=== PATIENT | female | born 1940 | race Caucasian/White ===

== ENCOUNTER → 2018-03-18 15:49 | Outpatient (REF) | payer OTHER, SELFPAY ==
[2018-03-18 20:32] LABS: Anion Gap 9.2 mmol/L (3-11); BUN 19 mg/dL (7-18); CO2 27.8 mmol/L (21.0-32.0); CREATININE 1.16 mg/dL (0.55-1.02); Calcium 8.6 mg/dL (8.5-10.1); Chloride 104 mmol/L (98-107); Estimated GFR 45.07 (mL/min/1.73m2); Glucose 89 mg/dL (70-100); Potassium 4.9 mmol/L (3.5-5.1); Sodium 141 mmol/L (136-145); TSH 0.28 uIU/mL (0.358-3.74)
[2018-03-19 15:18] LABS: FREE T4 1.12 ng/dL (0.76-1.46)
== END ==
LOC: NCHCN 15:49
PROVIDERS: PCP Nurse Practitioner Family; Visit Provider Physician Assistant Medical
DX: I10 Essential (primary) hypertension (principal); E03.9 Hypothyroidism, unspecified
CPT/HCPCS: 80048; 84439; 84443

== ENCOUNTER 2018-08-04 16:21 | Outpatient (REF) | payer OTHER, SELFPAY | END 2018-08-04 16:41 | LOC: LBN 16:21 | PROVIDERS: PCP Nurse Practitioner Family; Visit Provider Nurse Practitioner Family | DX: R35.0 Frequency of micturition (principal) | CPT/HCPCS: 87077; 87086; 87186 ==

== ENCOUNTER 2018-08-10 16:52 | Outpatient (REF) | payer OTHER, SELFPAY ==
[2018-08-10 21:58] LABS: Abs Immature Grans 0.02 k/cumm (0.0-0.09); Absolute Basophil Count 0.04 k/cumm (0.0-0.2); Absolute Eosinophil Count 0.33 k/cumm (0.0-0.7); Absolute Lymphocyte Count 1.28 k/cumm (1.2-3.4); Absolute Neutrophil Count 4.76 k/cumm (1.2-6.7); Basophils % 0.6; Eosinophils % 4.6; HCT 41.3 % (36.0-46.0); HGB 13.6 g/dL (12.0-15.5); Immature Grans % 0.3; Mean Corp. HGB Concentration 32.9 g/dL (32.0-36.0); Mean Corpuscular Hemoglobin 31.8 pg (27.0-33.0); Mean Corpuscular Volume 96.5 fL (80-95); Mean Platelet Volume 10.7 fL (8.0-11.0); Monocytes % 9.8; Neutrophils % 66.7; Platelet Count 236 x1000/uL (130-400); RBC 4.28 m/cumm (4.00-5.20); RBC Distribution Width 14.4 % (11.7-14.6); White Blood Cell Count 7.13 k/cumm (4.4-10.8)
[2018-08-10 22:24] LABS: ALT 15 U/L (12-78); AST 16 U/L (15-37); Albumin 3.9 g/dL (3.4-5.0); Alkaline Phosphatase 67 U/L (46-116); BUN 22 mg/dL (7-18); Bilirubin, Total 0.2 mg/dL (0.2-1.0); Chloride 103 mmol/L (98-107); Creatine Kinase 57 U/L (26-192); Estimated GFR 43.34 (mL/min/1.73m2); Glucose 82 mg/dL (70-100); Potassium 4.7 mmol/L (3.5-5.1); Sodium 140 mmol/L (136-145); TSH 1.43 uIU/mL (0.358-3.74); Total Protein 7.1 g/dL (6.4-8.2)
== END 2018-08-10 17:12 ==
LOC: NCHCN 16:52
PROVIDERS: PCP Nurse Practitioner Family; Visit Provider Nurse Practitioner Family
DX: E03.9 Hypothyroidism, unspecified (principal); I10 Essential (primary) hypertension; R31.9 Hematuria, unspecified; R53.83 Other fatigue
CPT/HCPCS: 80053; 82550; 84443; 85025

== ENCOUNTER 2018-09-18 12:12 | Outpatient (REF) | payer OTHER, SELFPAY ==
[2018-09-18 19:20] LABS: Cholesterol 181 mg/dL (50-200); HDL Cholesterol 65 mg/dL (40-60); LDL CHOLESTEROL 91 mg/dL (<100); Triglyceride 151 mg/dL (30-150)
== END 2018-09-18 12:32 ==
LOC: NCHCN 12:12
PROVIDERS: PCP Nurse Practitioner Family; Visit Provider Nurse Practitioner Family
DX: E78.5 Hyperlipidemia, unspecified (principal)
CPT/HCPCS: 80061; 83721

== ENCOUNTER 2018-12-24 12:53 | Outpatient (REF) | payer OTHER, SELFPAY | END 2018-12-24 13:13 | LOC: NCHCN 12:53 | PROVIDERS: PCP Family Medicine; Visit Provider Nurse Practitioner Family | DX: R30.0 Dysuria (principal) | CPT/HCPCS: 87077; 87086; 87186 ==

== ENCOUNTER 2019-03-29 15:11 | Outpatient (REF) | payer OTHER, SELFPAY ==
[2019-03-29 21:23] LABS: ALT 18 U/L (14-59); AST 14 U/L (15-37); Anion Gap 8.4 mmol/L (3-11); BUN 18 mg/dL (7-18); CO2 27.6 mmol/L (21.0-32.0); CREATININE 0.87 mg/dL (0.55-1.02); Calcium 8.4 mg/dL (8.5-10.1); Chloride 105 mmol/L (98-107); Glucose 90 mg/dL (70-100); Potassium 4.4 mmol/L (3.5-5.1); Sodium 141 mmol/L (136-145)
[2019-03-29 22:01] LABS: ESR 19 mm/hr (0-30)
[2019-03-29 22:13] LABS: Creatine Kinase 87 U/L (26-192)
== END 2019-03-29 15:31 ==
LOC: NCHCN 15:11
PROVIDERS: PCP Family Medicine; Visit Provider Nurse Practitioner Family
DX: M62.81 Muscle weakness (generalized) (principal); R27.9 Unspecified lack of coordination
CPT/HCPCS: 80048; 82550; 85652; 84450; 84460

== ENCOUNTER 2019-09-23 08:13 | Outpatient (REF) | payer OTHER, SELFPAY ==
[2019-09-23 20:03] LABS: ALT 18 U/L (14-59); AST 15 U/L (15-37); Anion Gap 10.3 mmol/L (3-11); BUN 15 mg/dL (7-18); CO2 27.7 mmol/L (21.0-32.0); Calcium 8.7 mg/dL (8.5-10.1); Calculated LDL 82 mg/dL (<100); Chloride 105 mmol/L (98-107); Cholesterol 166 mg/dL (<200); Glucose 95 mg/dL (74-106); HDL Cholesterol 57 mg/dL (40-60); Potassium 4.3 mmol/L (3.5-5.1); Sodium 143 mmol/L (136-145); TSH (W/Ref FT4) 2.17 uIU/mL (0.36-3.74); Triglyceride 136 mg/dL (<150)
[2019-09-23 20:23] LABS: Creatine Kinase 66 U/L (26-192)
== END 2019-09-23 08:33 ==
LOC: NCHCN 08:13
PROVIDERS: PCP Family Medicine; Visit Provider Nurse Practitioner Family
DX: E78.5 Hyperlipidemia, unspecified (principal); I10 Essential (primary) hypertension; E03.9 Hypothyroidism, unspecified; B02.29 Other postherpetic nervous system involvement
CPT/HCPCS: 80048; 80061; 82550; 84443; 84450; 84460

== ENCOUNTER 2020-03-20 10:59 | Outpatient (REF) | payer OTHER, SELFPAY ==
[2020-03-20 20:25] LABS: Anion Gap 10.2 mmol/L (3-11); BUN 16 mg/dL (7-18); CO2 25.8 mmol/L (21.0-32.0); CREATININE 0.99 mg/dL (0.55-1.02); Chloride 105 mmol/L (98-107); Estimated GFR 53.83 (mL/min/1.73m2); Glucose 95 mg/dL (74-106); Potassium 4.5 mmol/L (3.5-5.1); Sodium 141 mmol/L (136-145)
== END 2020-03-20 11:19 ==
LOC: NCHCN 10:59
PROVIDERS: PCP Family Medicine; Visit Provider Nurse Practitioner Family
DX: I10 Essential (primary) hypertension (principal)
CPT/HCPCS: 80048

== ENCOUNTER 2020-07-10 18:57 | Outpatient (REF) | payer OTHER, SELFPAY ==
[2020-07-12 15:53] LABS: COVID-19 RT-PCR UVMMC Result Negative (Negative)
== END 2020-07-10 19:17 ==
LOC: NCHCN 18:57
PROVIDERS: PCP Family Medicine; Visit Provider Nurse Practitioner Family
DX: R51.9 Headache, unspecified (principal); R11.10 Vomiting, unspecified
CPT/HCPCS: U0003

== ENCOUNTER 2021-08-15 13:47 | Outpatient (REF) | payer OTHER, SELFPAY ==
[2021-08-15 20:25] LABS: HCT 42.6 % (36.0-46.0); HGB 13.4 g/dL (11.2-15.7); MCH 30.8 pg (27.0-33.0); MCHC 31.5 % (32.0-36.0); MCV 97.9 fL (80-95); MPV 10.8 fL (8.0-11.0); Platelet Count 260 10^3/uL (130-400); RBC 4.35 10^6/uL (3.93-5.22); RDW 13.2 % (11.7-14.6); RDW-SD 47.9 fL; WBC 6.02 10^3/uL (4.4-10.8)
[2021-08-15 20:56] LABS: ALT 18 U/L (14-59); AST 15 U/L (15-37); Anion Gap 8.7 mmol/L (3-11); BUN 18 mg/dL (7-18); CO2 29.3 mmol/L (21.0-32.0); CREATININE 1.1 mg/dL (0.55-1.02); Calcium 8.8 mg/dL (8.5-10.1); Chloride 102 mmol/L (98-107); Estimated GFR 47.55 (mL/min/1.73m2); Glucose 95 mg/dL (74-106); HDL Cholesterol 61 mg/dL (40-60); LDL CHOLESTEROL 91 mg/dL (<100); Potassium 4.6 mmol/L (3.5-5.1); Sodium 140 mmol/L (136-145); TSH (W/Ref FT4) 7.09 uIU/mL (0.36-3.74)
[2021-08-15 21:13] LABS: Creatine Kinase 97 U/L (26-192); FREE T4 0.64 ng/dL (0.76-1.46)
== END 2021-08-15 13:48 | disposition home or self-care (01) ==
LOC: NCHCN 13:47
PROVIDERS: PCP Family Medicine; Visit Provider Nurse Practitioner Family
DX: E78.5 Hyperlipidemia, unspecified (principal); E03.9 Hypothyroidism, unspecified; I10 Essential (primary) hypertension; K21.9 Gastro-esophageal reflux disease without esophagitis; K59.09 Other constipation
CPT/HCPCS: 80048; 82550; 83721; 85027; 83718; 84439; 84443; 84450; 84460

== ENCOUNTER 2021-10-16 15:28 | Outpatient (REF) | payer OTHER, SELFPAY ==
[2021-10-16 20:19] LABS: TSH (W/Ref FT4) 2.27 uIU/mL (0.36-3.74)
== END 2021-10-16 15:29 | disposition home or self-care (01) ==
LOC: NCHCN 15:28
PROVIDERS: PCP Family Medicine; Visit Provider Nurse Practitioner Family
DX: E03.9 Hypothyroidism, unspecified (principal)
CPT/HCPCS: 84443

== ENCOUNTER 2021-10-26 14:51 | Outpatient (REF) | payer OTHER, SELFPAY ==
--- NOTE | 2021-10-26 14:00 | SKI_PTH ---
PATIENT: Lia Liu LOC: [facility] U#:[id number] AGE/SX: 80/F ROOM: RE10/26/[address]: Susannah Wilson V : 1940 BED: DIS: 10/26/2021 SPEC #: [id number] RECD: 10/29/21 11:47 STATUS: YVAN PEREZ #: [id number] JOSHUA: 10/26/21 14:[address]: Susannah Wilson V DEPT: Surgical Specimen RECD BY: Maddi Wright Tissues: 1 - SKIN BIOPSY(SHAVE/PUNCH) Procedures: SKIN LEVEL 4 Comments: [id number]
== END 2021-10-26 14:52 | disposition home or self-care (01) ==
LOC: NCHCN 14:51
PROVIDERS: PCP Family Medicine; Visit Provider Family Medicine
DX: L82.1 Other seborrheic keratosis (principal)
CPT/HCPCS: 88305

== ENCOUNTER 2022-06-21 13:12 | Outpatient (REF) | payer OTHER, SELFPAY ==
[2022-06-21 16:26] LABS: Abs Immature Grans 0.01 10^3/uL (0.0-0.06); Absolute Basophil Count 0.05 10^3/uL (0.0-0.2); Absolute Eosinophil Count 0.21 10^3/uL (0.0-0.7); Absolute Lymphocyte Count 0.76 10^3/uL (1.2-3.4); Absolute Monocyte Count 0.52 10^3/uL (0.1-0.8); Absolute Neutrophil Count 3.32 10^3/uL (1.2-6.7); Eosinophils % 4.3; HCT 40.1 % (36.0-46.0); HGB 13.4 g/dL (11.2-15.7); Immature Grans % 0.2; Lymphocytes % 15.6; MCHC 33.4 % (32.0-36.0); MCV 93 fL (80-95); MPV 11.1 fL (8.0-11.0); Monocytes % 10.7; Neutrophils % 68.2; Platelet Count 214 10^3/uL (130-400); RBC 4.32 10^6/uL (3.93-5.22); RDW 13.5 % (11.7-14.6); RDW-SD 46.2 fL; WBC 4.87 10^3/uL (4.4-10.8)
== END 2022-06-21 13:13 | disposition home or self-care (01) ==
LOC: NCHCN 13:12
PROVIDERS: PCP Family Medicine; Visit Provider Nurse Practitioner Family
DX: K21.9 Gastro-esophageal reflux disease without esophagitis (principal); K58.9 Irritable bowel syndrome, unspecified
CPT/HCPCS: 85025

== ENCOUNTER 2022-10-09 15:18 | Outpatient (REF) | payer OTHER, SELFPAY ==
[2022-10-10 11:32] LABS: ALT 14 U/L (14-59); AST 14 U/L (15-37); Albumin 3.8 g/dL (3.4-5.0); Alkaline Phosphatase 79 U/L (46-116); Anion Gap 5.2 mmol/L (3-11); BUN 17 mg/dL (7-18); Bilirubin, Total 0.3 mg/dL (0.2-1.0); CO2 32.8 mmol/L (21.0-32.0); Chloride 101 mmol/L (98-107); Glucose 106 mg/dL (74-106); HDL Cholesterol 61 mg/dL (40-60); LDL CHOLESTEROL 88 mg/dL (<100); Potassium 3.8 mmol/L (3.5-5.1); Sodium 139 mmol/L (136-145); TSH 5.15 uIU/mL (0.36-3.74); Total Protein 6.9 g/dL (6.4-8.2)
[2022-10-10 11:53] LABS: Calcium 8.7 mg/dL (8.5-10.1); Creatine Kinase 89 U/L (26-192); FREE T4 0.76 ng/dL (0.76-1.46)
[2022-10-10 13:25] LABS: Hemoglobin A1C 5.6 % (<5.7)
== END 2022-10-09 15:19 | disposition home or self-care (01) ==
LOC: NCHCN 15:18
PROVIDERS: PCP Family Medicine; Visit Provider Nurse Practitioner Family
DX: I10 Essential (primary) hypertension (principal); E03.9 Hypothyroidism, unspecified; E78.5 Hyperlipidemia, unspecified; R53.83 Other fatigue; K58.9 Irritable bowel syndrome, unspecified; Z83.3 Family history of diabetes mellitus; L29.2 Pruritus vulvae; R79.89 Other specified abnormal findings of blood chemistry
CPT/HCPCS: 80053; 82550; 83721; 83036; 83718; 84439; 84443; 87480; 87510; 87660